=== PATIENT | male | born 1955 | race Two or more races ===

== ENCOUNTER 2023-11-21 20:08 | Inpatient (IN) | payer OTHER ==
[~2023-11-21] VITALS: Ht 162.6 cm; Wt 77.0 kg
[~2023-11-21 20:08] MED LIST: ATOR10TA52 PO; CARV-216 PO; DOXY-286 PO; LISI20TA56 PO; RIV20T PO
[2023-11-21 21:38] LABS: Basophils # (auto) 0.1 10 ^3/uL (0-0.2); Basophils % (auto) 0.7 % (0.0-2.0); Eosinophils # (auto) 0.1 10 ^3/uL (0-0.8); Eosinophils % (auto) 1.2 % (0.0-7.0); Hematocrit 34.9 % (41.0-53.0); Hemoglobin 11.2 g/dL (13.5-17.5); Lymphocytes # (auto) 0.8 10 ^3/uL (0.4-5.4); Lymphocytes % (auto) 9.8 % (10.0-50.0); Mean Corpuscular Hemoglobin 24.7 pg (28.0-32.0); Mean Corpuscular Volume 77.4 fL (80.0-100.0); Monocytes # (auto) 0.5 10 ^3/uL (0-1.3); Monocytes % (auto) 6.1 % (0.0-12.0); Neutrophils # (auto) 6.7 10 ^3/uL (1.6-8.6); Neutrophils % (auto) 82.2 % (37.0-80.0); Platelet Count (auto) 237 10^3/uL (140-450); Red Blood Cells 4.51 10^6/uL (4.5-5.90); Red Cell Distribution Width 17.2 % (11.8-14.3); White Blood Cell 8.2 10^3/uL (4.4-10.8)
[2023-11-21 21:58] LABS: Alanine Aminotransferase 121 U/L (7-40); Albumin 4.2 g/dL (3.2-4.8); Alkaline Phosphatase 101 U/L (46-116); Anion Gap 5 (5-15); Aspartate Aminotransferase 53 U/L (13-40); Bilirubin, Total 0.8 mg/dL (0.2-1.0); Blood Urea Nitrogen 44 mg/dL (9-23); Calcium 9.3 mg/dL (8.7-10.4); Carbon Dioxide 26 mmol/L (20-30); Chloride 109 mmol/L (98-107); Glucose 119 mg/dL (74-106); Potassium 4.2 mmol/L (3.5-5.1); Sodium 140 mmol/L (136-145); Total Protein 6.3 g/dL (5.7-8.2)
[2023-11-22] VITALS (11 sets, daily range): BP systolic 116–164; BP diastolic 78–107; PULSE 90–126; RESP 15–28; TEMP 97.6–98.6; O2SAT 94–100
[2023-11-22] MEDS ORDERED: NITROGLYCERIN 0.4 MG SL TAB SL PRN
[2023-11-22] MEDS ORDERED: ALBUTEROL SULF 2.5 MG/0.5ML(0.5%) NEB SOLN NEB PRN (00:15)
[2023-11-22] MEDS ORDERED: ONDANSETRON HCL 4 MG/2 ML VIAL IV PRN (00:15)
[2023-11-22] MEDS: FUROSEMIDE 100 MG/10ML VIAL IV ONE (02:22)
[2023-11-22] MEDS: dilTIAZem 25 MG/5 ML VIAL IV ONE (03:20)
[2023-11-22] MEDS ORDERED: MORPHINE SULFATE INJ 2 MG/ml SYRG IV PRN ×2 (08:00)
[2023-11-22] MEDS ORDERED: HYDROcodone-ACET 5/325MG TAB ONE (08:23)
[2023-11-22] MEDS: HYDROcodone-ACET 5/325MG TAB PO PRN (08:28)
[2023-11-22] MEDS: CARVEDILOL 12.5 MG TAB PO SCH (09:26)
[2023-11-22] MEDS: FUROSEMIDE 20 MG/2 ML VIAL IV SCH (09:27)
[2023-11-22] MEDS: amLODIPine BESYLATE 5 MG TAB PO SCH (09:27)
[2023-11-22 09:37] LABS: Urine Bacteria FEW /hpf (None Seen); Urine Blood Negative /uL (Negative); Urine Clarity Clear (Clear); Urine Color Colorless (Yellow); Urine Protein, UAD Negative (Negative); Urine Specific Gravity 1.007 (1.001-1.035); Urine Urobilinogen Normal (Negative); Urine WBC 2 /hpf (0 - 3)
[2023-11-22] MEDS ORDERED: PATIENTS OWN MEDICATION (xarelto 20 MG) PO SCH (10:00)
[2023-11-22] MEDS: RIVAROXABAN 20 MG TAB PO SCH (18:08)
[2023-11-22] MEDS: ATORVASTATIN 20 MG TAB PO SCH (21:19)
[2023-11-23 01:00] VITALS: BP 129/88; PULSE 98; RESP 17; TEMP 97.7; O2SAT 94
[2023-11-23 05:00] VITALS: BP 122/78; PULSE 82; RESP 18; TEMP 97.7; O2SAT 97
[2023-11-23] MEDS ORDERED: DOCUSATE SOD 100 MG CAP PO PRN (05:30)
[2023-11-23] MEDS: DOCUSATE SOD 100 MG CAP PO ONE (05:34)
[2023-11-23 06:36] VITALS: O2SAT 97
[2023-11-23 07:02] LABS: Calcium 9.2 mg/dL (8.7-10.4); Chloride 105 mmol/L (98-107); Potassium 3.6 mmol/L (3.5-5.1); Sodium 142 mmol/L (136-145)
[2023-11-23 07:03] LABS: Anion Gap 8 (5-15); Carbon Dioxide 29 mmol/L (20-31)
[2023-11-23 07:09] LABS: BUN/Creatinine Ratio 27.9 (10.0-20.0); Blood Urea Nitrogen 48 mg/dL (9-23); Glucose 108 mg/dL (74-106)
[2023-11-23 08:00] VITALS: PULSE 99; RESP 20; O2SAT 93
[2023-11-23 09:00] VITALS: BP 138/94; PULSE 99; RESP 20; TEMP 98.3; O2SAT 93
[2023-11-23] MEDS ORDERED: HYDR-4902 PO (12:13)
[2023-11-23] MEDS ORDERED: FURO1TAB33 PO (12:13)
[2023-11-23 13:18] VITALS: BP 134/87; PULSE 76; RESP 20; TEMP 97.8; O2SAT 97
== END 2023-11-23 14:00 | disposition home or self-care (01) | DRG 291 ==
LOC: ER 20:08 → TELE 23:49 → TELE-E-ADS 11-22 08:46
PROVIDERS: ADMIT Nurse Practitioner; ATTEND Internal Medicine
DX: I11.0 Hypertensive heart disease with heart failure (principal); I50.43 Acute on chronic combined systolic (congestive) and diastolic (congestive) heart failure; J96.20 Acute and chronic respiratory failure, unspecified whether with hypoxia or hypercapnia; D68.9 Coagulation defect, unspecified; N17.9 Acute kidney failure, unspecified; I50.9 Heart failure, unspecified; E78.5 Hyperlipidemia, unspecified; I48.91 Unspecified atrial fibrillation
CPT/HCPCS: 36415; 71045; 74018; 80048; 80053; 81001; 83880; 84484; 85025; 85379; 93005; G0378